=== PATIENT | female | born 1950 | race Caucasian/White ===

== ENCOUNTER 2020-02-16 20:10 | Emergency (ER) | payer OTHER, MEDICARE ==
[~2020-02-16] VITALS: Ht 167.6 cm; Wt 68.0 kg
[2020-02-16 20:14] VITALS: BP_SYST 156
[2020-02-16] MEDS ORDERED: ACETAMINOPHEN 500 MG TABLET PO ONE (21:00)
[2020-02-16 22:24] VITALS: BP_SYST 130
== END 2020-02-16 22:24 | disposition home or self-care (01) ==
LOC: SED 20:10
DX: M25.571 Pain in right ankle and joints of right foot (principal); R51 Headache; V19.9XXA Pedal cyclist (driver) (passenger) injured in unspecified traffic accident, initial encounter; Y93.89 Activity, other specified; Y92.096 Garden or yard of other non-institutional residence as the place of occurrence of the external cause; Y99.8 Other external cause status
CPT/HCPCS: 70450-TC; 73590-TC; 99284

== ENCOUNTER 2022-10-12 07:35 | Emergency (ER) | payer OTHER, MEDICARE ==
[~2022-10-12] VITALS: Ht 167.6 cm; Wt 65.3 kg
[2022-10-12 07:40] VITALS: BP_SYST 157
[2022-10-12] MEDS ORDERED: NACL 0.9% 1,000 ML IV ONE (08:15)
[2022-10-12] MEDS ORDERED: GABAPENTIN 300 MG CAPSULE PO ONE (08:15)
[2022-10-12 08:34] LABS: BASOPHILS % (AUTO) 0.8 % (0.0-2.0); EOSINOPHILS # (AUTO) 0.1 K/uL (0.0-0.4); EOSINOPHILS % (AUTO) 2.9 % (0.0-4.0); HEMATOCRIT 37.3 % (36-48); HEMOGLOBIN 12.9 g/dL (12.0-16.0); LYMPHOCYTES # (AUTO) 1.2 K/uL (1.0-5.5); LYMPHOCYTES % (AUTO) 24.2 % (20.5-51.5); MEAN CORPUSCULAR HEMOGLOBIN 30 pg (27-31); MEAN CORPUSCULAR HGB CONC 35 % (32-36); MEAN CORPUSCULAR VOLUME 88 fL (79.0-98.0); MONOCYTES # (AUTO) 0.4 K/uL (0.0-1.0); MONOCYTES % (AUTO) 7.9 % (1.7-9.3); NEUTROPHILS # (AUTO) 3.3 K/uL (1.8-7.7); NEUTROPHILS % (AUTO) 64.2 % (40.0-70.0); PLATELET COUNT (AUTO) 206 K/uL (130-430); RED BLOOD CELL COUNT(AUTO) 4.26 MIL/uL (4.2-6.2); RED CELL DISTRIBUTION WIDTH 12.8 % (9.0-15.0); WHITE BLOOD COUNT (AUTO) 5.1 K/uL (4.8-10.8)
[2022-10-12 08:51] LABS: ANION GAP 12 (5-15); CALCIUM 8.5 mg/dL (8.4-11.0); CHLORIDE 103 mmol/L (98-107); GLUCOSE 251 mg/dL (70-99); UREA NITROGEN, BLOOD 7 mg/dL (8-21)
[2022-10-12 08:57] LABS: ALANINE AMINOTRANSFERASE 25 U/L (12-78); ALBUMIN 3.6 g/dL (3.4-4.8); ASPARTATE AMINOTRANSFERASE 15 U/L (10-37); LIPASE 96 U/L (73-393); PHOSPHORUS 3.6 mg/dL (2.7-4.5); TOTAL BILIRUBIN 0.4 mg/dL (0.0-1.0)
[2022-10-12 09:02] LABS: BILIRUBIN,URINE NEGATIVE (NEGATIVE); BLOOD, URINE NEGATIVE (NEGATIVE); CLARITY/URINE CLEAR (CLEAR); COLOR,URINE YELLOW (YELLOW); GLUCOSE,URINE 3+ (NEGATIVE); KETONES,URINE NEGATIVE (NEGATIVE); LEUKOCYTE ESTERASE ,URINE TRACE (NEGATIVE); NITRITE, URINE NEGATIVE (NEGATIVE); PROTEIN URINE NEGATIVE (NEGATIVE); UROBILINOGEN,URINE 0.2 (0.2-1.0)
[2022-10-12] MEDS ORDERED: GABAPENTIN 300 MG CAPSULE ONE (09:09)
[2022-10-12 09:14] LABS: BACTERIA,URINE RARE /HPF (None Seen); MUCUS,URINE 1+ /LPF (None Seen); RBC,URINE 0-3 /HPF (0-3); WBC,URINE 0-3 /HPF (0-3)
[2022-10-12] MEDS ORDERED: cephALEXin 500 MG CAPSULE PO ONE (09:30)
[2022-10-12] MEDS ORDERED: MAGNESIUM SULFATE/D5W 100 ML IV ONE (10:00)
[2022-10-12] MEDS ORDERED: ACETAMINOPHEN 500 MG TABLET PO ONE (10:00)
[2022-10-12] MEDS ORDERED: LIDOCAINE PATCH 5% 1 EA TP SCH (10:00)
[2022-10-12] MEDS ORDERED: CEPH-548 PO (10:54)
[2022-10-12] MEDS ORDERED: NEU300 PO (10:54)
[2022-10-12] MEDS ORDERED: LIDO1ADH22 TP (10:54)
[2022-10-12 11:30] VITALS: BP_SYST 157
== END 2022-10-12 11:26 | disposition home or self-care (01) ==
LOC: SED 07:35
DX: M54.6 Pain in thoracic spine (principal); E11.9 Type 2 diabetes mellitus without complications; I10 Essential (primary) hypertension; E83.42 Hypomagnesemia; G62.89 Other specified polyneuropathies; Z79.899 Other long term (current) drug therapy
CPT/HCPCS: 99285; 96365; 71045; 96361; 80053; 81000; 82550; 82962; 83690; 83735; 84100; 85025; 87086; 84484; 36415; 93005; J7030